=== PATIENT | male | born 1985 | race Caucasian/White ===

== ENCOUNTER → 2021-01-29 11:03 | Outpatient (BNVA) | payer MEDICAID, SELFPAY | PROVIDERS: PCP Family Medicine Adult Medicine; Visit Provider Family Medicine Adult Medicine | DX: E03.9 Hypothyroidism, unspecified (principal); Z85.830 Personal history of malignant neoplasm of bone; Z86.69 Personal history of other diseases of the nervous system and sense organs; Z13.6 Encounter for screening for cardiovascular disorders; H61.21 Impacted cerumen, right ear | CPT/HCPCS: 80053; 80061; 84443; 85025 ==

== ENCOUNTER 2021-02-07 10:12 | Outpatient (CLI) | payer MEDICAID, SELFPAY ==
--- NOTE | 2021-02-07 11:00 | US_ITS ---
WS: [id number] Complete ABDOMINAL ULTRASOUND HISTORY: Elevated T. Bilirubin 3.2 COMPARISON: None available. Liver: 14.5 cm in length. Liver is normal size and echogenicity with no mass or intrahepatic dilatati on. Gallbladder: Normally distended with no gallstones, wall thickening or pericholecystic fluid. Gallbladder wall thickness: 0.3 cm. Pancreas: Obscured by bowel gas. CBD: 0.4 cm. Right kidney: 10.0 cm x 4.3 cm x 3.6 cm. No mass, cortical thickening or hydronephrosis. Left kidney: 9.0 cm x 3.8 cm x 3.8 cm. No mass, cortical thickening or hydronephrosis. Spleen: Spleen is mildly enlarged extending over length of 14.8 cm. The echotexture is normal. Abdominal aorta and IVC are within normal limits. No ascites. US/US abdomen complete* [id number] IMPRESSION: 1. Mild splenomegaly of uncertain etiology. 2. Normal gallbladder. 3. No bile duct dilatation.
== END 2021-02-07 10:13 | disposition home or self-care (01) ==
PROVIDERS: PCP Family Medicine Adult Medicine; Visit Provider Family Medicine Adult Medicine
DX: R17 Unspecified jaundice (principal); Z85.830 Personal history of malignant neoplasm of bone; E03.9 Hypothyroidism, unspecified; R16.1 Splenomegaly, not elsewhere classified
CPT/HCPCS: 76700

== ENCOUNTER → 2021-04-30 11:43 | Outpatient (BNVA) | payer MEDICAID, SELFPAY | PROVIDERS: PCP Family Medicine Adult Medicine; Visit Provider Family Medicine Adult Medicine | DX: E03.9 Hypothyroidism, unspecified (principal); R17 Unspecified jaundice | CPT/HCPCS: 82247; 82248; 84443 ==

== ENCOUNTER → 2021-11-03 14:49 | Outpatient (BNVA) | payer MEDICAID, SELFPAY | PROVIDERS: PCP Family Medicine Adult Medicine; Visit Provider Otolaryngology | DX: S00.451A Superficial foreign body of right ear, initial encounter (principal); H61.21 Impacted cerumen, right ear; H93.8X1 Other specified disorders of right ear; X58.XXXA Exposure to other specified factors, initial encounter | CPT/HCPCS: 69200; 69205; 99203 ==

== ENCOUNTER → 2022-04-29 11:13 | Outpatient (BNVA) | payer MEDICAID, SELFPAY | PROVIDERS: PCP Family Medicine Adult Medicine; Visit Provider Family Medicine Adult Medicine | DX: E03.9 Hypothyroidism, unspecified (principal); R17 Unspecified jaundice; Z86.69 Personal history of other diseases of the nervous system and sense organs; Z85.830 Personal history of malignant neoplasm of bone | CPT/HCPCS: 80053; 84443 ==

== ENCOUNTER → 2022-07-29 11:11 | Outpatient (BNVA) | payer MEDICAID, SELFPAY | PROVIDERS: PCP Family Medicine Adult Medicine; Visit Provider Family Medicine Adult Medicine | DX: E03.9 Hypothyroidism, unspecified (principal) | CPT/HCPCS: 84443 ==

== ENCOUNTER → 2023-01-27 11:02 | Outpatient (BNVA) | payer MEDICAID, SELFPAY | PROVIDERS: PCP Family Medicine Adult Medicine; Visit Provider Family Medicine Adult Medicine | DX: E03.9 Hypothyroidism, unspecified (principal) | CPT/HCPCS: 84443 ==

== ENCOUNTER → 2023-08-02 10:16 | Outpatient (BNVA) | payer MEDICAID, SELFPAY | PROVIDERS: PCP Family Medicine Adult Medicine; Visit Provider Family Medicine Adult Medicine | DX: R17 Unspecified jaundice (principal); E03.9 Hypothyroidism, unspecified; Z85.830 Personal history of malignant neoplasm of bone | CPT/HCPCS: 80053; 84443 ==

== ENCOUNTER → 2025-01-17 10:48 | Outpatient (BNVA) | payer MEDICAID, SELFPAY | PROVIDERS: PCP Family Medicine; Visit Provider Family Medicine | DX: Z13.6 Encounter for screening for cardiovascular disorders (principal); E03.9 Hypothyroidism, unspecified; R73.03 Prediabetes | CPT/HCPCS: 80053; 83036; 84439; 84443; 85025 ==

== ENCOUNTER 2025-02-26 16:05 | Emergency (ER) | payer MEDICAID, SELFPAY ==
[2025-02-26 16:05] VITALS: BP 119/85; PULSE 101; RESP 17; TEMP 36.7; O2SAT 96; BMI 20.4
--- NOTE | 2025-02-26 16:09 | CTR_ITS ---
PROCEDURE INFORMATION: Exam: CT Maxillofacial Without Contrast Exam date and time: 02/26/2025 4:25 PM Age: 39 years old Clinical indication: Injury or trauma; Other: Dog bite; Blunt trauma (contusions or hematomas); Eyelid and jaw and lip/oral cavity; Not specified; Right; Both upper and lower; Additional info: Injury from dog bite TECHNIQUE: Imaging protocol: Computed tomography of the face without contrast. Radiation optimization: All CT scans at this facility use at least one of these dose optimization techniques: automated exposure control; mA and/or kV adjustment per patient size (includes targeted exams where dose is matched to clinical indication); or iterative reconstruction. COMPARISON: CT head wo con* [id number] 02/26/2025 4:25 PM RADIATION DOSE METRICS: Total DLP (mGy-cm): 697.7 FINDINGS: Paranasal sinuses: Minimal mucoperiosteal thickening in the right maxillary sinus. No fluid levels. Orbital cavities: Orbits are normal. Globes are unremarkable. Bones: Normal alignment. No evidence of fracture. Soft tissues: Extensive air in the superficial and deep soft tissues of the right face. Other findings: No radiopaque foreign body. CT/CT facial bones wo con* [id number] IMPRESSION: 1. Extensive air in the superficial and deep soft tissues of the right face. Consistent with penetrating injury from reported dog attack. 2. No acute osseous abnormality.
--- NOTE | 2025-02-26 16:09 | CTR_ITS ---
PROCEDURE INFORMATION: Exam: CT Head Without Contrast Exam date and time: 02/26/2025 4:25 PM Age: 39 years old Clinical indication: Injury or trauma; Other: Dog attack; Bleeding/hemorrhage; Additional info: Injury from dog bite TECHNIQUE: Imaging protocol: Computed tomography of the head without contrast. Radiation optimization: All CT scans at this facility use at least one of these dose optimization techniques: automated exposure control; mA and/or kV adjustment per patient size (includes targeted exams where dose is matched to clinical indication); or iterative reconstruction. 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 Cerebral ventricles: No ventriculomegaly. Paranasal sinuses: Visualized sinuses are unremarkable. No fluid levels. Mastoid air cells: Visualized mastoid air cells are well aerated. Bones: Unremarkable. No acute fracture. Soft tissues: Extensive air in the superficial and deep soft tissues of the right face and right temporal scalp consistent with penetrating injury. CT/CT head wo con* [id number] IMPRESSION: 1. Extensive air in the superficial and deep soft tissues of the right face and right temporal scalp consistent with penetrating injury. 2. No evidence of acute intracranial process. 3. 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
--- NOTE | 2025-02-26 16:09 | XRR_ITS ---
PROCEDURE INFORMATION: Exam: XR Right Forearm Exam date and time: 02/26/2025 4:42 PM Age: 39 years old Clinical indication: Injury or trauma; Other: Dog bite; Puncture; Arm, lower; Right; Additional info: Injury from dog bite TECHNIQUE: Imaging protocol: Radiologic exam of the right forearm. Views: 2 views. COMPARISON: No relevant prior studies available. FINDINGS: Bones/joints: No acute or suspicious osseous abnormality. Normal alignment. No acute fracture. Soft tissues: Extensive lacerations and soft tissue gas in the forearm consistent with penetrating injury. No radiopaque foreign body. XR/XR forearm RT 2V [id number] IMPRESSION: 1. Extensive lacerations and soft tissue gas in the forearm consistent with penetrating injury. 2. No acute osseous abnormality.
--- NOTE | 2025-02-26 16:09 | XRR_ITS ---
PROCEDURE INFORMATION: Exam: XR Left Forearm Exam date and time: 02/26/2025 4:40 PM Age: 39 years old Clinical indication: Injury or trauma; Other: Dog bite; Puncture; Arm, lower; Left; Additional info: Injury from dog bite TECHNIQUE: Imaging protocol: Radiologic exam of the left forearm. Views: 2 views. COMPARISON: No relevant prior studies available. FINDINGS: Bones/joints: Normal alignment. No acute fracture. Soft tissues: Distal lateral forearm soft tissue laceration and soft tissue gas consistent with penetrating injury. No radiopaque foreign body. XR/XR forearm LT 2V [id number] IMPRESSION: 1. No acute osseous abnormality. 2. Distal lateral forearm soft tissue laceration and soft tissue gas consistent with penetrating injury.
--- NOTE | 2025-02-26 16:11 | XRR_ITS ---
PROCEDURE INFORMATION: Exam: XR Chest Exam date and time: 02/26/2025 4:38 PM Age: 39 years old Clinical indication: Injury or trauma; Other: Dog bite; Puncture; Not specified; Additional info: Injury from dog bite TECHNIQUE: Imaging protocol: Radiologic exam of the chest. Views: 1 view. COMPARISON: No relevant prior studies available. FINDINGS: Lungs: Indeterminate age left upper lobe airspace disease. Pleural spaces: Unremarkable. No pleural effusion. No pneumothorax. Heart/Mediastinum: Possible left upper mediastinal soft tissue mass. Bones/joints: Unremarkable. XR/XR chest 1V portable [id number] IMPRESSION: 1. Indeterminate age left upper lobe airspace disease. This could represent pneumonia, but underlying neoplasm or scarring are in the differential. 2. Possible left upper mediastinal soft tissue mass. Further evaluation with contrast-enhanced CT chest is recommended.
--- NOTE | 2025-02-26 16:11 | W.ED.ANIMALB ---
Documented by User: IFTIKHAR Alaniz 02/26/25 19:09 HPI - Animal Bite General: Chief Complaint: Animal Bite Stated Complaint: Multiple dog bites History of Present Illness: Patient is a 39-year-old gentleman with hypothyroidism, presents to the emergency room due to dog bite. This was unprovoked. It was the neighbors dog. Rabies status is thought to be up-to-date. [place] Roy mix husky. Patient stated dog came over to him, and started attacking him for no reason. Patient's owners grandmother asked him if he was okay, patient was in the position, being attacked, screaming help. She called 911. He has laceration on his lip, right eyelid, below right eye, top of head, bilateral arms. Small superficial to left leg. Denies shortness of breath. Admits to anxiety and pain. This occurred just prior to arrival. EMS brought patient in, and gave Zofran 4 mg, fentanyl 100 mcg. Associated symptoms: Deny chills, fever(s) or headache(s) Related Data Home Medications ?Medication ?Instructions ?Recorded ?Confirmed buspirone 5 mg tablet 5 mg PO BID PRN Anxiety 02/26/25 02/26/25 levothyroxine 100 mcg tablet 100 mcg PO QPM 02/26/25 02/26/25 levothyroxine 50 mcg capsule 50 mcg PO QPM 02/26/25 02/26/25 Allergies Allergy/AdvReac Type Severity Reaction Status Date / Time pineapple Allergy Severe ALGY-Difficulty Verified 01/17/25 10:07 Swallowing salmon oil Allergy Severe ALGY-Swell Verified 01/17/25 10:07 Lip/Tongue/Throat acetaminophen (From Percocet) AdvReac Intermediate ADR-Vomitin Verified 01/17/25 10:07 g oxycodone (From Percocet) AdvReac Intermediate ADR-Vomitin Verified 01/17/25 10:07 g Review of Systems General: Reports: 10 or more systems reviewed and unremarkable except in HPI and below Const: Reports: body aches; Denies: fever(s) or chills Eyes: Denies: change in vision or blurry vision ENMT: Reports: nasal congestion; Denies: ear or mastoid pain, nasal obstruction or post nasal drip Card: Denies: chest pain or palpitations Resp: Denies: dyspnea or non-productive cough GI: Denies: abdominal pain, nausea or vomiting : Denies: flank pain or difficulty urinating Musc: Reports: extremity pain and joint stiffness; Denies: neck pain, back pain or joint warmth Skin/Breast: Reports: new lesions Neuro: Denies: headache(s), numbness in extremities or weakness in extremities Psych: Reports: anxiety; Denies: depression All/Imm: Denies: urticaria or throat swelling PFSH ED PFSH: Medical History (Updated 02/26/25 @ 18:46 by IFTIKHAR Alaniz) Skin thickening Hx of seizure disorder Last seizure age 8 y/o and not on meds since. 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 Surgical History History of removal of Port-a-Cath Family History Grandfather Cancer Hypertension Social History Smoking and tobacco/nicotine status: never used tobacco/nicotine Alcohol intake: former Substance/Drug Use: current Substance/Drug use frequency: Special occassions/opportunity only Marital status: Single Number of children: 0 Current occupational status: unemployed and disabled Physical Exam Const: COMMON NORMALS: patient oriented x3 HENMT: FACE & SINUS IMAGES:  1. laceration 2. laceration 3. Laceration, crosses the vermilion border 4. laceration 5. laceration Neck/C-Spine: COMMON NORMALS: full ROM and no lymphadenopathy Resp: COMMON NORMALS: normal respiratory effort, No retractions and clear to auscultation bilaterally AUSCULTATION: clear to auscultation bilaterally Cardio: COMMON NORMALS: regular rate and regular rhythm RATE: regular rate RHYTHM: regular rhythm GI: COMMON NORMALS: Normal to inspection, nondistended, normoactive bowel sounds present, Soft to palpation, non-tender and No hepatosplenomegaly present PALPATION: Yes Soft to palpation and Yes No hepatosplenomegaly present : COMMON NORMALS: Yes no CVA tenderness BLADDER/KIDNEY EXAM: Yes no CVA tenderness Back/Pelvis: COMMON NORMALS: no CVA tenderness Extremity: RIGHT UPPER EXTREMITY: Yes lower arm Right lower arm: Yes inspection (multiple lacerations) RIGHT LOWER EXTREMITY: Yes upper leg Right upper leg: Yes inspection (multiple lacerations) EXTREMITY IMAGE (FRONT):  1. laceration 2. laceration 3. laceration 4. laceration 5. laeration EXTREMITY IMAGE (BACK):  1. superficial laceration Neuro: COMMON NORMALS: patient oriented x3 and CN's II-XII intact bilaterally Psych: COMMON NORMALS: cooperative ATTITUDE: Yes agitated ACTIVITY/MOTOR BEHAVIOR: Yes appropriate eye contact Skin: NARRATIVE SKIN EXAM: Multiple extensive lacerations. See pictures above. Procedures Laceration Laceration 1: Site: upper extremity Side (If applicable): left Size (cm): 4 Description: linear Depth: involves muscle layer Local Anesthetic: lidocaine 1% and with epi Amount of anesthesia used (mL): 2 Pre-repair: wound explored and irrigated extensively (1000 ml) Skin layer closed with: nylon Size (cm): 4-0 Number of sutures: 2 Technique: simple, interrupted Laceration 2: Site: upper extremity Side (If applicable): left Size (cm): 2.5 Depth: simple, single layer Local Anesthetic: lidocaine 1% and with epi Amount of anesthesia used (mL): 1 Pre-repair: wound explored, irrigated extensively (500 ml) and wound margins revised Skin layer closed with: nylon Size (cm): 4-0 Number of sutures: 1 Technique: simple, interrupted Laceration 3: Site: upper extremity Side (If applicable): right Size (cm): 8 Depth: simple, single layer, involves muscle layer and involves tendon Local Anesthetic: lidocaine 1% and with epi Amount of anesthesia used (mL): 8 Pre-repair: wound explored and irrigated extensively (1000ml) Skin layer closed with: nylon Size (cm): 4-0 Number of sutures: 4 Technique: simple, interrupted Course Consultations: Consultation #1: Discussed with Dr. Santo, needs upper extremity injury specialist. Consultation #2: Discussed the case with Meenakshi, Dr. Simmons has excepted as direct admit to the ED. Time critical diagnosis, therefore will fly patient due to life threat. Vital Signs: Vital signs: Vital Signs Temperature 98.1 F 02/26/25 16:05 Pulse Rate 88 10/14/25 18:42 Respiratory Rate 16 02/26/25 18:23 Blood Pressure 171/87 02/26/25 18:42 Pulse Oximetry 98 02/26/25 18:42 Oxygen Delivery Me thod Room Air 02/26/25 16:05 MDM - Animal Bite Medical Decision Making Patient is a 39-year-old male with multiple lacerations and distal upper extremities, face, head. He has a left lower lip injury is split. He will require multiple repairs. Will check routine lab work, chest x-ray, although lungs are clear, bilateral forearms, CT head and face. Patient is understandably quite anxious, and therefore we will give him half milligram Ativan, and Norflex, Toradol. EMS gave fentanyl. Continuous pulse ox applied. Patient had tendon injury to right mid forearm. He could not extend his wrist. Partial tendon injury was seen. Discussed with Dr. Santo. Needs upper extremity injury. Did not discuss with general surgery since additional injuries are the face that need suture/washout, since orthopedics could not take care of tendon injury here with the extensive nature of the upper EXTR injury. Laceration repaired: Left x 2, loose given dog bite. Right arm where there is extensive tendon injury closed given the extensive gap, and was done loosely, however tendon injury is present, 1000 L of wash, but patient's wrist will not be extended. Patient will be sent to [facility] for further repair of his right arm, washout, and further repair of his face/ocular intrusion. On repair of right forearm: Added 1000 mL liter washout. On repair of left forearm: Added 500 mL to each suture injury. Patient's dad is at bedside. Relates the dog is not up-to-date on rabies status. This is not their dog, it is the neighbors. I will defer starting rabies shots/immunoglobulin to [facility] as this is now a time critical diagnosis and patient will need to be moved to trauma center. The rabies vaccination series/immunoglobulin can continue here after he is discharged from [facility]. Chronically elevated bilirubin on previous evaluations here for suspect Gilbert's syndrome. The case was discussed with: the PA. Evaluation and management service: I agree with the evaluation and management decisions made in this patient's care. Results interpretation: I agree with the study interpretation in this patient's care, I agree with the documentation of the study interpretation. I have examined the patient personally. Patient has numerous lacerations over the scalp and face. More concerning is a laceration on the arm that appears to be Bolf tendon and he has difficulty flexing extending his wrist. This will need OR with likely trauma surgery and Ortho and possibly plastics. I agree with transfer. Medical Records I reviewed the patient's medical records. Lab Data I reviewed the patient's lab results. 02/26/25 16:18 02/26/25 16:[address] 02/26/25 16:09 IMPRESSION: 1. Extensive air in the superficial and deep soft tissues of the right face. Consistent with penetrating injury from reported dog attack. 2. No acute osseous abnormality. Forearm X-Ray 02/26/25 16:09 IMPRESSION: 1. Extensive lacerations and soft tissue gas in the forearm consistent with penetrating injury. 2. No acute osseous abnormality. Head CT 02/26/25 16:09 IMPRESSION: 1. Extensive air in the superficial and deep soft tissues of the right face and right temporal scalp consistent with penetrating injury. 2. No evidence of acute intracranial process. 3. 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 Chest X-Ray 02/26/25 16:11 IMPRESSION: 1. Indeterminate age left upper lobe airspace disease. This could represent pneumonia, but underlying neoplasm or scarring are in the differential. 2. Possible left upper mediastinal soft tissue mass. Further evaluation with contrast-enhanced CT chest is recommended. Laboratory Results WBC 22.66 10^3/uL (3.29-11.43) H 02/26/25 16:18 RBC 4.93 10^6/uL (3.85-5.65) 02/26/25 16:18 Hgb 15.00 g/dL (11.27-16.99) 02/26/25 16:18 Hct 42.1 % (37-53) 02/26/25 16:18 MCV 85.4 fl (82-101) 02/26/25 16:18 MCH 30.4 pg (27-33) 02/26/25 16:18 MCHC 35.6 g/dL (30-55) 02/26/25 16:18 RDW 14.4 % (12.1-15.1) 02/26/25 16:18 Plt Count 191 10^3/cmm (157-399) 02/26/25 16:18 MPV 9.4 fL (7.4-10.4) 02/26/25 16:18 Neut % (Auto) 92.9 % 02/26/25 16:18 Lymph % (Auto) 3.8 % 02/26/25 16:18 Boone % (Auto) 2.4 % 02/26/25 16:18 Eos % (Auto) 0.1 % 02/26/25 16:18 Baso % (Auto) 0.2 % 02/26/25 16:18 Neut # (Auto) 21.06 10^3/uL (1.8-7.7) H 02/26/25 16:18 Lymph # (Auto) 0.9 10^3/uL (0.8-4.8) 02/26/25 16:18 Boone # (Auto) 0.5 10^3/uL (0.2-0.9) 02/26/25 16:18 Eos # (Auto) 0.0 10^3/uL (0.0-0.8) 02/26/25 16:18 Baso # (Auto) 0.0 10^3/uL (0.0-0.1) 02/26/25 16:18 Nucleated RBC % (auto) 0 % 02/26/25 16:18 Nucleated RBCs # 0.0 /100WBC 02/26/25 16:18 Sodium 138 mmol/L (136-145) 02/26/25 16:18 Potassium 3.3 mmol/L (3.5-5.1) L 02/26/25 16:18 Chloride 101 mmol/L (98-107) 02/26/25 16:18 Carbon Dioxide 18 mmol/L (22-29) L 02/26/25 16:18 Anion Gap 22.3 (5-19) H 02/26/25 16:18 BUN 14 mg/dL (6-20) 02/26/25 16:18 Creatinine 1.2 mg/dL (0.7-1.2) 02/26/25 16:18 GFR Calculation 68.1 mL/min (90-130) L 02/26/25 16:18 Glucose 203 mg/dL (65-115) H 02/26/25 16:18 Calculated Osmolality 292 mOsm/kg (285-295) 02/26/25 16:18 Calcium 9.2 mg/dL (8.5-10.5) 02/26/25 16:18 Total Bilirubin 2.0 mg/dL (0.15-1.2) H 02/26/25 16:18 AST 24 U/L (0-40) 02/26/25 16:18 ALT 27 U/L (0-41) 02/26/25 16:18 Alkaline Phosphatase 89 U/L (40-130) 02/26/25 16:18 Total Protein 6.6 g/dL (6.6-8.7) 02/26/25 16:18 Albumin 4.4 g/dL (3.5-5.2) 02/26/25 16:18 Globulin 2.2 g/dL (1.3-4.6) 02/26/25 16:18 All radiology interpretation(s) finalized by discharge Discharge Plan Discharge Patient Disposition: Xfer Short-Term Hosp Clinical Impression: Bite by animal, Rabies contact, Mass of left lung, Hypokalemia Laceration of right upper arm with tendon involvement Qualifiers: Encounter type: initial encounter Qualified Code(s): S41.111A - Laceration without foreign body of right upper arm, initial encounter Ocular laceration of right eye Qualifiers: Encounter type: initial encounter Qualified Code(s): S05.31XA - Ocular laceration without prolapse or loss of intraocular tissue, right eye, initial encounter Laceration of head Qualifiers: Encounter type: initial encounter Location of open wound of head: scalp Foreign body presence: without foreign body Qualified Code(s): S01.01XA - Laceration without foreign body of scalp, initial encounter Complicated laceration of lip Qualifiers: Encounter type: initial encounter Qualified Code(s): S01.511A - Laceration without foreign body of lip, initial encounter Laceration of left upper arm Qualifiers: Encounter type: initial encounter Qualified Code(s): S41.112A - Laceration without foreign body of left upper arm, initial encounter Laceration of head with complication Qualifiers: Encounter type: initial encounter Qualified Code(s): S01.91XA - Laceration without foreign body of unspecified part of head, initial encounter Leukocytosis (leucocytosis) Qualifiers: Leukocytosis type: leukemoid reaction Qualified Code(s): D72.823 - Leukemoid reaction Condition: Serious Referrals: Snwo Aleman DO [Primary Care Provider, Family Practice] Discharge Diet: As Directed Print Language: Kenyan Coding Level of Care Code ED Cane Pusher for Chg Fwd Documented by User: Dayna Nieves MD 02/26/25 18:38 HPI - Animal Bite General: Chief Complaint: Animal Bite Stated Complaint: Multiple dog bites Related Data Home Medications ?Medication ?Instructions ?Recorded ?Confirmed buspirone 5 mg tablet 5 mg PO BID PRN Anxiety 02/26/25 02/26/25 levothyroxine 100 mcg tablet 100 mcg PO QPM 02/26/25 02/26/25 levothyroxine 50 mcg capsule 50 mcg PO QPM 02/26/25 02/26/25 Allergies Allergy/AdvReac Type Severity Reaction Status Date / Time pineapple Allergy Severe ALGY-Difficulty Verified 01/17/25 10:07 Swallowing salmon oil Allergy Severe ALGY-Swell Verified 01/17/25 10:07 Lip/Tongue/Throat acetaminophen (From Percocet) AdvReac Intermediate ADR-Vomitin Verified 01/17/25 10:07 g oxycodone (From Percocet) AdvReac Intermediate ADR-Vomitin Verified 01/17/25 10:07 g PFSH ED PFSH: Medical History (Updated 02/26/25 @ 18:46 by IFTIKHAR Alaniz) Skin thickening Hx of seizure disorder Last seizure age 8 y/o and not on meds since. 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 Surgical History History of removal of Port-a-Cath Family History Grandfather Cancer Hypertension Social History Smoking and tobacco/nicotine status: never used tobacco/nicotine Alcohol intake: former Substance/Drug Use: current Substance/Drug use frequency: Special occassions/opportunity only Marital status: Single Number of children: 0 Current occupational status: unemployed and disabled Physical Exam HENMT: FACE & SINUS IMAGES:  1. laceration 2. laceration 3. Laceration, crosses the vermilion border 4. laceration 5. laceration Extremity: EXTREMITY IMAGE (FRONT):  1. laceration 2. laceration 3. laceration 4. laceration 5. laeration EXTREMITY IMAGE (BACK):  1. superficial laceration Course Vital Signs: Vital signs: Vital Signs Temperature 98.1 F 02/26/25 16:05 Pulse Rate 88 02/26/25 18:42 Respiratory Rate 16 02/26/25 18:23 Blood Pressure 171/87 02/26/25 18:42 Pulse Oximetry 98 02/26/25 18:42 Oxygen Delivery Me thod Room Air 02/26/25 16:05 MDM - Animal Bite Medical Decision Making Patient is a 39-year-old male with multiple lacerations and distal upper extremities, face, head. He has a left lower lip injury is split. He will require multiple repairs. Will check routine lab work, chest x-ray, although lungs are clear, bilateral forearms, CT head and face. Patient is understandably quite anxious, and therefore we will give him half milligram Ativan, and Norflex, Toradol. EMS gave fentanyl. Continuous pulse ox applied. Patient had tendon injury to right mid forearm. He could not extend his wrist. Partial tendon injury was seen. Discussed with Dr. Santo. Needs upper extremity injury. Did not discuss with general surgery since additional injuries are the face that need suture/washout, since orthopedics could not take care of tendon injury here with the extensive nature of the upper EXTR injury. Laceration repaired: Left x 2, loose given dog bite. Right arm where there is extensive tendon injury closed given the extensive gap, and was done loosely, however tendon injury is present, 1000 L of wash, but patient's wrist will not be extended. Patient will be sent to [facility] for further repair of his right arm, washout, and further repair of his face/ocular intrusion. On repair of right forearm: Added 1000 mL liter washout. On repair of left forearm: Added 500 mL to each suture injury. Patient's dad is at bedside. Relates the dog is not up-to-date on rabies status. This is not their dog, it is the neighbors. I will defer starting rabies shots/immunoglobulin to [facility] as this is now a time critical diagnosis and patient will need to be moved to trauma center. The rabies vaccination series/immunoglobulin can continue here after he is discharged from [facility]. The case was discussed with: the nurse practitioner. Evaluation and management service: I agree with the evaluation and management decisions made in this patient's care. Results interpretation: I agree with the study interpretation in this patient's care, I agree with the documentation of the study interpretation. I have examined the patient personally. Patient has numerous lacerations over the scalp and face. More concerning is a laceration on the arm that appears to be Bolf tendon and he has difficulty flexing extending his wrist. This will need OR with likely trauma surgery and Ortho and possibly plastics. I agree with transfer. Lab Data 02/26/25 16:18 02/26/25 16:[address] 02/26/25 16:09 IMPRESSION: 1. Extensive air in the superficial and deep soft tissues of the right face. Consistent with penetrating injury from reported dog attack. 2. No acute osseous abnormality. Forearm X-Ray 02/26/25 16:09 IMPRESSION: 1. Extensive lacerations and soft tissue gas in the forearm consistent with penetrating injury. 2. No acute osseous abnormality. Head CT 02/26/25 16:09 IMPRESSION: 1. Extensive air in the superficial and deep soft tissues of the right face and right temporal scalp consistent with penetrating injury. 2. No evidence of acute intracranial process. 3. 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 Chest X-Ray 02/26/25 16:11 IMPRESSION: 1. Indeterminate age left upper lobe airspace disease. This could represent pneumonia, but underlying neoplasm or scarring are in the differential. 2. Possible left upper mediastinal soft tissue mass. Further evaluation with contrast-enhanced CT chest is recommended. Laboratory Results WBC 22.66 10^3/uL (3.29-11.43) H 02/26/25 16:18 RBC 4.93 10^6/uL (3.85-5.65) 02/26/25 16:18 Hgb 15.00 g/dL (11.27-16.99) 02/26/25 16:18 Hct 42.1 % (37-53) 02/26/25 16:18 MCV 85.4 fl (82-101) 02/26/25 16:18 MCH 30.4 pg (27-33) 02/26/25 16:18 MCHC 35.6 g/dL (30-55) 02/26/25 16:18 RDW 14.4 % (12.1-15.1) 02/26/25 16:18 Plt Count 191 10^3/cmm (157-399) 02/26/25 16:18 MPV 9.4 fL (7.4-10.4) 02/26/25 16:18 Neut % (Auto) 92.9 % 02/26/25 16:18 Lymph % (Auto) 3.8 % 02/26/25 16:18 Boone % (Auto) 2.4 % 02/26/25 16:18 Eos % (Auto) 0.1 % 02/26/25 16:18 Baso % (Auto) 0.2 % 02/26/25 16:18 Neut # (Auto) 21.06 10^3/uL (1.8-7.7) H 02/26/25 16:18 Lymph # (Auto) 0.9 10^3/uL (0.8-4.8) 02/26/25 16:18 Boone # (Auto) 0.5 10^3/uL (0.2-0.9) 02/26/25 16:18 Eos # (Auto) 0.0 10^3/uL (0.0-0.8) 02/26/25 16:18 Baso # (Auto) 0.0 10^3/uL (0.0-0.1) 02/26/25 16:18 Nucleated RBC % (auto) 0 % 02/26/25 16:18 Nucleated RBCs # 0.0 /100WBC 02/26/25 16:18 Sodium 138 mmol/L (136-145) 02/26/25 16:18 Potassium 3.3 mmol/L (3.5-5.1) L 02/26/25 16:18 Chloride 101 mmol/L (98-107) 02/26/25 16:18 Carbon Dioxide 18 mmol/L (22-29) L 02/26/25 16:18 Anion Gap 22.3 (5-19) H 02/26/25 16:18 BUN 14 mg/dL (6-20) 02/26/25 16:18 Creatinine 1.2 mg/dL (0.7-1.2) 02/26/25 16:18 GFR Calculation 68.1 mL/min (90-130) L 02/26/25 16:18 Glucose 203 mg/dL (65-115) H 02/26/25 16:18 Calculated Osmolality 292 mOsm/kg (285-295) 02/26/25 16:18 Calcium 9.2 mg/dL (8.5-10.5) 02/26/25 16:18 Total Bilirubin 2.0 mg/dL (0.15-1.2) H 02/26/25 16:18 AST 24 U/L (0-40) 02/26/25 16:18 ALT 27 U/L (0-41) 02/26/25 16:18 Alkaline Phosphatase 89 U/L (40-130) 02/26/25 16:18 Total Protein 6.6 g/dL (6.6-8.7) 02/26/25 16:18 Albumin 4.4 g/dL (3.5-5.2) 02/26/25 16:18 Globulin 2.2 g/dL (1.3-4.6) 02/26/25 16:18 Discharge Plan Discharge Patient Disposition: Xfer Short-Term Hosp Clinical Impression: Bite by animal, Rabies contact, Mass of left lung, Hypokalemia Laceration of right upper arm with tendon involvement Qualifiers: Encounter type: initial encounter Qualified Code(s): S41.111A - Laceration without foreign body of right upper arm, initial encounter Ocular laceration of right eye Qualifiers: Encounter type: initial encounter Qualified Code(s): S05.31XA - Ocular laceration without prolapse or loss of intraocular tissue, right eye, initial encounter Laceration of head Qualifiers: Encounter type: initial encounter Location of open wound of head: scalp Foreign body presence: without foreign body Qualified Code(s): S01.01XA - Laceration without foreign body of scalp, initial encounter Complicated laceration of lip Qualifiers: Encounter type: initial encounter Qualified Code(s): S01.511A - Laceration without foreign body of lip, initial encounter Laceration of left upper arm Qualifiers: Encounter type: initial encounter Qualified Code(s): S41.112A - Laceration without foreign body of left upper arm, initial encounter Laceration of head with complication Qualifiers: Encounter type: initial encounter Qualified Code(s): S01.91XA - Laceration without foreign body of unspecified part of head, initial encounter Leukocytosis (leucocytosis) Qualifiers: Leukocytosis type: leukemoid reaction Qualified Code(s): D72.823 - Leukemoid reaction Condition: Serious Referrals: Snow Aleman DO [Primary Care Provider, [facility]] Discharge Diet: As Directed Print Language: Kenyan Coding Level of Care Code ED Cane Pusher for Uriel Cerna
[2025-02-26] MEDS: LORazepam 1 MG/0.5 ML injection 0.5 MG IVP (16:17)
[2025-02-26] MEDS: orphenadrine 30 mg/mL Inj 2 mL 60 MG IVP (16:18)
[2025-02-26] MEDS: tetanus-dipt-pertussis 0.5 mL SDV IM (16:20)
[2025-02-26 16:28] LABS: Hematocrit 42.1 % (37-53); Hemoglobin 15.00 g/dL (11.27-16.99); Mean Corpuscular HGB Conc 35.6 g/dL (30-55); Mean Corpuscular Hemoglobin 30.4 pg (27-33); Mean Corpuscular Volume 85.4 fl (82-101); Nucleated Red Blood Cells % 0 %; Platelet Count 191 10^3/cmm (157-399); Red Blood Count 4.93 10^6/uL (3.85-5.65); White Blood Count 22.66 10^3/uL (3.29-11.43)
--- NOTE | 2025-02-26 16:40 | PC.PHAR ---
Pt takes Levothyroxine at night instead of in the morning.
[2025-02-26 16:50] LABS: Alanine Aminotransferase 27 U/L (0-41); Albumin Level 4.4 g/dL (3.5-5.2); Alkaline Phosphatase 89 U/L (40-130); Anion Gap 22.3 (5-19); Aspartate Amino Transferase 24 U/L (0-40); Blood Urea Nitrogen 14 mg/dL (6-20); Calcium 9.2 mg/dL (8.5-10.5); Carbon Dioxide 18 mmol/L (22-29); Chloride 101 mmol/L (98-107); Creatinine Clr Calc Pharmacy 68.0835; Globulin 2.2 g/dL (1.3-4.6); Glucose 203 mg/dL (65-115); Osmolality Calculated 292 mOsm/kg (285-295); Potassium 3.3 mmol/L (3.5-5.1); Sodium 138 mmol/L (136-145); Total Protein 6.6 g/dL (6.6-8.7)
[2025-02-26] MEDS: piperacillin-tazobactam 4.5 GM in sodium chloride 0.9% (plus) 50 ML IV (18:14)
[2025-02-26] MEDS: lidocaine-epi 1% 20 mL INJ INJECTION (18:17)
[2025-02-26 18:23] VITALS: RESP 16
[2025-02-26] MEDS: fentaNYL 50 mcg/mL INJ 2mL IVP (18:23)
[2025-02-26 18:42] VITALS: BP 171/87; PULSE 88; O2SAT 98
[2025-02-26 19:30] VITALS: BP 153/73; PULSE 91; RESP 16; O2SAT 99
== END 2025-02-26 19:31 | disposition short-term general hospital (02) ==
PROVIDERS: Emergency Provider Physician Assistant; PCP Family Medicine
DX: S41.111A Laceration without foreign body of right upper arm, initial encounter (principal); S05.31XA Ocular laceration without prolapse or loss of intraocular tissue, right eye, initial encounter; S01.01XA Laceration without foreign body of scalp, initial encounter; S01.511A Laceration without foreign body of lip, initial encounter; S41.112A Laceration without foreign body of left upper arm, initial encounter; S01.91XA Laceration without foreign body of unspecified part of head, initial encounter; D72.823 Leukemoid reaction; Z20.3 Contact with and (suspected) exposure to rabies; W54.0XXA Bitten by dog, initial encounter; Z85.830 Personal history of malignant neoplasm of bone
CPT/HCPCS: 12001; 12032; 13121; 13122; 70450; 70486; 71045; 73090; 80053; 85025; 90471; 90715; 96365; 96372; 96375; 99285; J1885; J2060; J2360; J2543; J3010; J7120; J9999